=== PATIENT | male | born 1945 | race Caucasian/White ===

== ENCOUNTER 2022-08-16 14:30 | Emergency (ER) | payer BC, MEDICARE ==
[~2022-08-16] VITALS: Ht 162.6 cm; Wt 65.8 kg
[~2022-08-16 14:30] MED LIST: AMIO200T44 PO; APIX5TAB PO; ASCO100031 PO; BENZ-70 PO; CHOL100040 PO; DILT180C63 PO; DOXY100T2 PO; FAMO20TA8 PO; FLUT16H NS; FURO40TA7 PO; LEVO5TAB13 PO; MAGN250T10 PO; MECO10005 PO; METO50 PO; MULT-1203 PO; ZINC50TA64 PO
[2022-08-16 14:31] VITALS: BP 142/79
[2022-08-16] MEDS ORDERED: DiphenhydrAMINE HCL 50 MG/ML VIAL IV STA (19:58)
[2022-08-16 20:03] LABS: BASOPHILS % (AUTO) 0.6 % (0.0-5.0); EOSINOPHILS % (AUTO) 2.8 % (0.0-8.0); HEMATOCRIT 42.8 % (42-54); LYMPHOCYTES % (AUTO) 22.1 % (21.0-51.0); MEAN CORPUSCULAR HEMOGLOBIN 30.5 pg (27.0-33.0); MEAN CORPUSCULAR HGB CONC 32.9 g/dL (32.0-36.0); MEAN CORPUSCULAR VOLUME 92.6 fL (79-99); MONOCYTES % (AUTO) 7.2 % (3.0-13.0); NEUTROPHILS % (AUTO) 66.1 % (40.0-77.0); PLATELET COUNT (AUTO) 173 K/uL (130-400); RED BLOOD CELL COUNT(AUTO) 4.62 MIL/uL (4.50-6.20); RED CELL DISTRIBUTION WIDTH 13.6 % (11.0-15.5); WHITE BLOOD COUNT (AUTO) 9.9 K/uL (4.8-10.8)
[2022-08-16 20:11] LABS: CREATININE 1.1 mg/dL (0.5-1.5); POTASSIUM 3.9 mmol/L (3.5-5.1)
[2022-08-16 20:16] LABS: ALBUMIN 3.5 g/dL (3.5-5.0); TOTAL PROTEIN, SERUM 7.4 g/dL (6.0-8.3)
[2022-08-16] MEDS ORDERED: FAMO40TA7 PO (21:53)
[2022-08-16] MEDS ORDERED: DIPH-1242 PO (21:53)
== END 2022-08-16 22:18 | disposition home or self-care (01) ==
LOC: EDH 14:30
DX: L51.9 Erythema multiforme, unspecified (principal); R21 Rash and other nonspecific skin eruption; I48.91 Unspecified atrial fibrillation; Z91.030 Bee allergy status; Z98.890 Other specified postprocedural states; Z79.899 Other long term (current) drug therapy
CPT/HCPCS: 99284; 96374; 80053; 85025; 36415; J1200

== ENCOUNTER → 2022-10-20 | Outpatient (CLI) | payer BC ==
[~2022-10-20] MED LIST changes: +BENZ-226 PO; -BENZ-70 PO; +DIPH-1242 PO; +FAMO40TA7 PO
== END | disposition home or self-care (01) ==
LOC: SHCH 09:47
PROVIDERS: ATTEND Internal Medicine Cardiovascular Disease
DX: I35.1 Nonrheumatic aortic (valve) insufficiency (principal); I42.0 Dilated cardiomyopathy; I11.9 Hypertensive heart disease without heart failure; I48.0 Paroxysmal atrial fibrillation; E78.5 Hyperlipidemia, unspecified
CPT/HCPCS: 93306

== ENCOUNTER → 2023-05-04 | Outpatient (CLI) | payer BC ==
[2023-05-04 16:30] LABS: CREATININE 1.2 mg/dL (0.5-1.5)
== END | disposition home or self-care (01) ==
LOC: LAB 14:11
PROVIDERS: ATTEND Internal Medicine Cardiovascular Disease
DX: I48.4 Atypical atrial flutter (principal)
CPT/HCPCS: 36415; 82565; 84520

== ENCOUNTER 2023-05-18 05:55 | Observation (INO) | payer BC ==
[2023-05-14 11:55] LABS: BASOPHILS # (AUTO) 0.07 K/uL (0.00-0.20); BASOPHILS % (AUTO) 0.9 % (0.0-5.0); EOSINOPHILS # (AUTO) 0.18 K/uL (0.00-0.70); EOSINOPHILS % (AUTO) 2.2 % (0.0-8.0); HEMATOCRIT 45.2 % (42-54); IMMATURE GRANULOCYTE ABSOLUTE 0.03 K/uL (0-1); LYMPHOCYTES # (AUTO) 2.2 K/uL (1.0-4.8); LYMPHOCYTES % (AUTO) 27.5 % (21.0-51.0); MEAN CORPUSCULAR HEMOGLOBIN 30.9 pg (27.0-33.0); MEAN CORPUSCULAR HGB CONC 34.1 g/dL (32.0-36.0); MEAN CORPUSCULAR VOLUME 90.6 fL (79-99); MONOCYTES # (AUTO) 0.8 K/uL (0.1-1.0); MONOCYTES % (AUTO) 10.3 % (3.0-13.0); NEUTROPHILS # (AUTO) 4.8 K/uL (1.8-7.7); NEUTROPHILS % (AUTO) 58.7 % (40.0-77.0); PLATELET COUNT (AUTO) 220 K/uL (130-400); RED BLOOD CELL COUNT(AUTO) 4.99 MIL/uL (4.50-6.20); RED CELL DISTRIBUTION WIDTH 13.5 % (11.0-15.5); WHITE BLOOD COUNT (AUTO) 8.2 K/uL (4.8-10.8)
[2023-05-14 12:07] LABS: INR 1.03 (0.85-1.15); PROTHROMBIN TIME 11.9 SEC (9.6-11.6)
[2023-05-14 12:08] LABS: PARTIAL THROMBOPLASTIN TIME 34.5 SEC (26.3-35.5)
[2023-05-14 12:28] LABS: CREATININE 1.1 mg/dL (0.5-1.5)
[2023-05-14 12:30] VITALS: BP 132/65; PULSE 58; RESP 17
[~2023-05-18] VITALS: Ht 167.6 cm; Wt 74.0 kg
[2023-05-18] VITALS (27 sets, daily range): BP systolic 99–142; BP diastolic 50–73; PULSE 45–69; RESP 11–23; O2SAT 96–97
[~2023-05-18 05:55] MED LIST changes: -AMIO200T44 PO; -ASCO100031 PO; -BENZ-226 PO; +CETI10CA5 PO; -CHOL100040 PO; -DIPH-1242 PO; -DOXY100T2 PO; -FAMO20TA8 PO; +FISH OIL PO; -FLUT16H NS; -FURO40TA7 PO; -LEVO5TAB13 PO; -MAGN250T10 PO; -METO50 PO; -ZINC50TA64 PO
[2023-05-18] MEDS ORDERED: 0.9%NACL 1000ML 1,000 ML IV ONE (06:20)
[2023-05-18] MEDS ORDERED: SUGAMMADEX SODIUM 200 MG/2 ML VIAL IV ONE (06:48)
[2023-05-18] MEDS ORDERED: KETAMINE HCL 100 MG/ML 5ML VIAL IJ ONE (06:48)
[2023-05-18] MEDS ORDERED: MIDAZOLAM HCL 1 MG/ML 2ML VIAL ONE (07:16)
[2023-05-18] MEDS ORDERED: PROPOFOL 10 MG/ML 20ML VIAL IV ONE (07:16)
[2023-05-18] MEDS ORDERED: FENTANYL CITRATE PF 50 MCG/1 ML 2ML VIAL ONE (07:16)
[2023-05-18] MEDS ORDERED: ROCURONIUM 10MG/1ML SYR 10 MG/ML ML ONE (07:16)
[2023-05-18] MEDS ORDERED: LIDOCAINE PF 100MG/5ML (2%) SYRINGE 5ML ONE (07:16)
[2023-05-18] MEDS ORDERED: PHENYLEPHRINE HCL 10 MG/ML 1ML VIAL IV ONE (07:17)
[2023-05-18] MEDS ORDERED: HEPARIN 10,000 UNIT/10ML (1,000 UNIT/ML) VIAL ONE ×2 (07:18→09:19)
[2023-05-18] MEDS ORDERED: LIDOCAINE HCL 400MG/20ML VIAL ONE ×2 (07:18→07:53)
[2023-05-18] MEDS ORDERED: FURO40TA5 PO (07:34)
[2023-05-18] MEDS ORDERED: DRON400T7 PO (07:34)
[2023-05-18] MEDS ORDERED: ISOPROTERENOL HCL 0.2 MG/ML AMP/VIAL/BAG ONE (08:13)
[2023-05-18] MEDS ORDERED: EPHEDRINE SULFATE 50 MG/ML AMPULE ONE (10:20)
[2023-05-18] MEDS ORDERED: PROTAMINE SULFATE 10 MG/ML 25ML VIAL IV ONE (10:46)
[2023-05-18] MEDS ORDERED: ONDANSETRON 4MG INJ ONE (10:48)
[2023-05-18] MEDS ORDERED: PANTOPRAZOLE 40 MG TAB DR PO SCH (13:00)
[2023-05-18] MEDS: SUCRALFATE 1 GM TABLET PO SCH ×2 (15:00→19:00)
[2023-05-18] MEDS: APIXABAN 5 MG TABLET PO SCH ×2 (19:00→19:57)
[2023-05-18] MEDS ORDERED: CETIRIZINE HCL 5 MG TABLET PO SCH (21:00)
[2023-05-19] MEDS: SUCRALFATE 1 GM TABLET PO SCH ×2 (01:03→06:03)
[2023-05-19 03:00] VITALS: BP 118/57; PULSE 72; RESP 21
[2023-05-19 04:00] VITALS: BP 124/70; PULSE 81; RESP 12
[2023-05-19 05:00] VITALS: BP 133/67; PULSE 76; RESP 22
[2023-05-19 06:00] VITALS: BP 126/66; PULSE 74; RESP 20
[2023-05-19 07:00] VITALS: BP 138/75; PULSE 81; RESP 16
[2023-05-19 08:00] VITALS: O2SAT 98
[2023-05-19] MEDS: APIXABAN 5 MG TABLET PO SCH (08:10)
[2023-05-19] MEDS ORDERED: PANTOPRAZOLE 40 MG TAB DR PO SCH (09:00)
[2023-05-19] MEDS ORDERED: DILTIAZEM 180MG SR CAP PO SCH (09:00)
[2023-05-19] MEDS ORDERED: FUROSEMIDE 40 MG TABLET PO SCH (09:00)
[2023-05-19] MEDS ORDERED: SUCR1TAB2 PO (09:26)
[2023-05-19] MEDS ORDERED: PANT40TA55 PO (09:26)
== END 2023-05-19 11:30 | disposition home or self-care (01) ==
LOC: DAH 05:55 → DAHIP 05:56 → 2BH 17:50
PROVIDERS: ADMIT Internal Medicine Cardiovascular Disease; ATTEND Internal Medicine Cardiovascular Disease
DX: I48.0 Paroxysmal atrial fibrillation (principal); I48.4 Atypical atrial flutter; R94.31 Abnormal electrocardiogram [ECG] [EKG]; Z79.899 Other long term (current) drug therapy; Z98.890 Other specified postprocedural states
CPT/HCPCS: 80048; 85025; 85610; 85730; 36415; 93005 ×2; 93622; 93623; 93655; 93656; 85347 ×6; 82948; A4344; C1894 ×3; C1732 ×2; C1731; A4649 ×2; C1766; G0378 ×30; J3010; J3490 ×5; J7030; J2720; J2001; J1644 ×4; J2250; J2704; J2405; J2371; A4215; A4223 ×3; A4222; A4221; A4663; A4216; A4606

== ENCOUNTER → 2023-08-18 | Outpatient (CLI) | payer BC ==
[~2023-08-18] MED LIST changes: -FAMO40TA7 PO; +FURO40TA5 PO; -MULT-1203 PO; +PANT40TA55 PO; +SUCR1TAB2 PO
[2023-08-18 12:10] LABS: BASOPHILS # (AUTO) 0.07 K/uL (0.00-0.20); BASOPHILS % (AUTO) 0.8 % (0.0-5.0); EOSINOPHILS # (AUTO) 0.17 K/uL (0.00-0.70); HEMATOCRIT 46.5 % (42-54); IMMATURE GRANULOCYTE ABSOLUTE 0.04 K/uL (0-1); LYMPHOCYTES # (AUTO) 2.4 K/uL (1.0-4.8); MEAN CORPUSCULAR HEMOGLOBIN 31.6 pg (27.0-33.0); MEAN CORPUSCULAR HGB CONC 34.4 g/dL (32.0-36.0); MEAN CORPUSCULAR VOLUME 91.9 fL (79-99); MONOCYTES # (AUTO) 0.7 K/uL (0.1-1.0); MONOCYTES % (AUTO) 8.7 % (3.0-13.0); NEUTROPHILS # (AUTO) 4.9 K/uL (1.8-7.7); PLATELET COUNT (AUTO) 238 K/uL (130-400); RED BLOOD CELL COUNT(AUTO) 5.06 MIL/uL (4.50-6.20); RED CELL DISTRIBUTION WIDTH 13.5 % (11.0-15.5); WHITE BLOOD COUNT (AUTO) 8.3 K/uL (4.8-10.8)
[2023-08-18 12:36] LABS: ALBUMIN 3.8 g/dL (3.5-5.0); BILIRUBIN,TOTAL 0.6 mg/dL (0.2-1.0); CREATININE 1.1 mg/dL (0.5-1.5); MAGNESIUM 2.2 mg/dL (1.80-2.40); POTASSIUM 4.8 mmol/L (3.5-5.1); THYROID STIMULATING HORMONE 1.93 uIU/mL (0.36-3.74); TOTAL PROTEIN, SERUM 7.5 g/dL (6.0-8.3)
== END | disposition home or self-care (01) ==
LOC: LAB 10:06
PROVIDERS: ATTEND Internal Medicine Cardiovascular Disease
DX: I48.0 Paroxysmal atrial fibrillation (principal)
CPT/HCPCS: 36415; 80053; 83735; 84443; 85025